=== PATIENT | female | born 1950 | race Two or more races ===

== ENCOUNTER 2017-04-29 22:31 | Emergency (ER) | payer OTHER ==
[~2017-04-29] VITALS: Ht 170.2 cm; Wt 74.8 kg
[2017-04-29] MEDS ORDERED: LANTUS SOL100 UNIT/1 (22:44)
[2017-04-29] MEDS ORDERED: FENOFIBRATE160 MG (22:45)
[2017-04-29] MEDS ORDERED: HUMULIN N100 UNIT/2 (22:45)
[2017-04-29] MEDS ORDERED: VALSARTAN320 MG (22:45)
[2017-04-29] MEDS ORDERED: CLOPIDOGREL BIS75 MG (22:46)
[2017-04-29] MEDS ORDERED: LEVOTHYROXINE50 MCG (22:46)
[2017-04-29] MEDS ORDERED: QUINAPRIL-HCTZ1 EAC2 (22:46)
[2017-04-30] MEDS ORDERED: KETO10TA2 PO (03:52)
[2017-04-30] MEDS ORDERED: DUI500 PO (03:52)
== END 2017-04-30 03:56 | disposition home or self-care (01) ==
LOC: ER 22:31
DX: S01.511A Laceration without foreign body of lip, initial encounter (principal); S00.83XA Contusion of other part of head, initial encounter; S80.02XA Contusion of left knee, initial encounter; W18.09XA Striking against other object with subsequent fall, initial encounter; Y93.89 Activity, other specified; Y92.018 Other place in single-family (private) house as the place of occurrence of the external cause; Y99.8 Other external cause status

== ENCOUNTER → 2017-10-27 | Outpatient (CLI) | payer OTHER ==
[~2017-10-27] MED LIST: CLOPIDOGREL BIS75 MG; DUI500 PO; FENOFIBRATE160 MG; HUMULIN N100 UNIT/2; KETO10TA2 PO; LANTUS SOL100 UNIT/1; LEVOTHYROXINE50 MCG; QUINAPRIL-HCTZ1 EAC2; VALSARTAN320 MG
== END | disposition home or self-care (01) ==
LOC: LAB 14:09
DX: E10.621 Type 1 diabetes mellitus with foot ulcer (principal)

== ENCOUNTER → 2017-11-17 | Outpatient (CLI) | payer OTHER | END | disposition home or self-care (01) | LOC: NUCLEAR 08:05 | DX: M19.90 Unspecified osteoarthritis, unspecified site (principal); M12.9 Arthropathy, unspecified | CPT/HCPCS: 78315; A9503 ==

== ENCOUNTER 2017-11-27 07:10 | Outpatient (CLI) | payer OTHER | END 2017-11-27 08:38 | disposition home or self-care (01) | LOC: NUCLEAR 07:10 | DX: M12.9 Arthropathy, unspecified (principal); M19.90 Unspecified osteoarthritis, unspecified site; M06.9 Rheumatoid arthritis, unspecified; L97.519 Non-pressure chronic ulcer of other part of right foot with unspecified severity | CPT/HCPCS: 78804; A9556 ==

== ENCOUNTER 2018-01-11 13:51 | Inpatient (IN) | payer OTHER ==
[~2018-01-11] VITALS: Ht 167.6 cm; Wt 160.0 kg
[2018-01-20] MEDS ORDERED: SYNTHROID50 MCG (16:42)
[2018-01-20] MEDS ORDERED: AVAPRO300 MG (16:43)
[2018-01-20] MEDS ORDERED: LANTUS SOL100 UNIT/1 (16:43)
[2018-01-20] MEDS ORDERED: FAMOTIDINE20 MG (16:43)
[2018-01-20] MEDS ORDERED: HUMULIN N100 UNIT/2 (16:44)
[2018-01-20] MEDS ORDERED: ULTRAM50 MG (16:44)
[2018-01-20] MEDS ORDERED: CATAPRES0.1 MG (16:44)
[2018-01-20] MEDS ORDERED: COLACE100 MG (16:44)
== END 2018-01-19 15:12 | disposition designated cancer center or children's hospital (05) | DRG 256 ==
LOC: SURH 13:51
PROVIDERS: Specialist
PROC: B44HZZZ Ultrasonography of Bilateral Lower Extremity Arteries (ICD-10-PCS; 2018-01-11)
PROC: 0Y6X0Z0 Detachment at Right 5th Toe, Complete, Open Approach (ICD-10-PCS; principal; 2018-01-12 10:00)
DX: E11.52 Type 2 diabetes mellitus with diabetic peripheral angiopathy with gangrene (principal); I70.261 Atherosclerosis of native arteries of extremities with gangrene, right leg; M86.171 Other acute osteomyelitis, right ankle and foot; I10 Essential (primary) hypertension; I70.292 Other atherosclerosis of native arteries of extremities, left leg; I77.1 Stricture of artery; E11.69 Type 2 diabetes mellitus with other specified complication

== ENCOUNTER 2018-01-20 16:38 | Inpatient (IN) | payer OTHER ==
[~2018-01-20] VITALS: Ht 167.6 cm; Wt 72.6 kg
[2018-01-20] MEDS ORDERED: SYNTHROID50 MCG (16:42)
[2018-01-20] MEDS ORDERED: AVAPRO300 MG (16:43)
[2018-01-20] MEDS ORDERED: FAMOTIDINE20 MG (16:43)
[2018-01-20] MEDS ORDERED: LANTUS SOL100 UNIT/1 (16:43)
[2018-01-20] MEDS ORDERED: COLACE100 MG (16:44)
[2018-01-20] MEDS ORDERED: HUMULIN N100 UNIT/2 (16:44)
[2018-01-20] MEDS ORDERED: ULTRAM50 MG (16:44)
[2018-01-20] MEDS ORDERED: CATAPRES0.1 MG (16:44)
== END 2018-02-09 09:34 | disposition home or self-care (01) | DRG 280 ==
LOC: ER 16:38 → ICU-2 20:54 → SURH 20:54 → ICU-2 21:00 → SEC-K 01-23 07:58 → MEDI 01-23 16:09 → MEDJ 01-23 17:12 → SURH 01-24 14:59
PROC: 4A033R1 Measurement of Arterial Saturation, Peripheral, Percutaneous Approach (ICD-10-PCS; principal; 2018-01-20)
PROC: 3E0F7GC Introduction of Other Therapeutic Substance into Respiratory Tract, Via Natural or Artificial Opening (ICD-10-PCS; 2018-01-20)
PROC: B246ZZZ Ultrasonography of Right and Left Heart (ICD-10-PCS; 2018-01-20)
PROC: 02HV33Z Insertion of Infusion Device into Superior Vena Cava, Percutaneous Approach (ICD-10-PCS; 2018-01-21)
PROC: 4A12X4Z Monitoring of Cardiac Electrical Activity, External Approach (ICD-10-PCS; 2018-01-23)
PROC: 8E0ZXY6 Isolation (ICD-10-PCS; 2018-01-24)
PROC: C23GYZZ Positron Emission Tomographic (PET) Imaging of Myocardium using Other Radionuclide (ICD-10-PCS; 2018-01-27)
PROC: 4A12XM4 Monitoring of Cardiac Stress, External Approach (ICD-10-PCS; 2018-01-27)
PROC: 3E033HZ Introduction of Radioactive Substance into Peripheral Vein, Percutaneous Approach (ICD-10-PCS; 2018-01-27)
DX: I97.191 Other postprocedural cardiac functional disturbances following other surgery (principal); I21.4 Non-ST elevation (NSTEMI) myocardial infarction; J81.0 Acute pulmonary edema; I50.23 Acute on chronic systolic (congestive) heart failure; E11.52 Type 2 diabetes mellitus with diabetic peripheral angiopathy with gangrene; J98.11 Atelectasis; I48.0 Paroxysmal atrial fibrillation; I97.131 Postprocedural heart failure following other surgery; Z89.421 Acquired absence of other right toe(s); I34.0 Nonrheumatic mitral (valve) insufficiency; E03.8 Other specified hypothyroidism; I25.10 Atherosclerotic heart disease of native coronary artery without angina pectoris; Z79.4 Long term (current) use of insulin; E11.42 Type 2 diabetes mellitus with diabetic polyneuropathy; L89.611 Pressure ulcer of right heel, stage 1; I11.0 Hypertensive heart disease with heart failure